=== PATIENT | male | born 1965 | race African-American/Black ===

== ENCOUNTER 2017-12-17 10:47 | Emergency (ER) | payer OTHER ==
[~2017-12-17] VITALS: Ht 170.2 cm; Wt 67.0 kg
[2017-12-17 11:43] LABS: HEMATOCRIT 43.6 % (38.0-50.0); HEMOGLOBIN 15.9 G/DL (12.5-16.6); MCH 32.2 PG (29.0-34.0); MCHC 36.5 G/DL (30.0-36.0); MCV 88.3 FL (86-99); PLATELET COUNT 304 K/uL (156-360); RBC DIS.WIDTH-SD 39.1 % (39-53); RED BLOOD COUNT 4.94 M/uL (4.00-5.50); WHITE BLOOD COUNT 8.4 K/uL (4.1-10.2)
[2017-12-17 11:53] LABS: ALBUMIN 4.3 g/dL (3.2-4.8); CHLORIDE 106 mEq/L (99-109); POTASSIUM 4.1 mEq/L (3.7-5.4); SODIUM 139 mEq/L (136-147)
[2017-12-17 11:55] LABS: GLUCOSE 99 mg/dL (70-99); TOTAL PROTEIN 7.8 g/dL (6.4-8.3)
[2017-12-17 11:57] LABS: TOTAL BILIRUBIN 0.7 mg/dL (0.0-1.0)
[2017-12-17 11:59] LABS: ALKALINE PHOSPHATASE 74 IU/L (3-129); CREATININE 1.1 mg/dL (0.6-1.3); GFR ESTIMATE (CALCULATED) > 59 mL/min/ (58.99-99999)
[2017-12-17 12:00] LABS: UREA NITROGEN (BUN) 14 mg/dL (9-23)
[2017-12-17 12:01] LABS: AST (GOT) 21 IU/L (2-34)
[2017-12-17 12:02] LABS: ALT (GPT) 13 IU/L (3-49)
[2017-12-17 12:46] LABS: APPEARANCE CLEAR ((CLEAR)); BILIRUBIN NEGATIVE; BLOOD NEGATIVE; COLOR AMBER ((YELLOW)); GLUCOSE (STRIP) NEGATIVE; KETONES 80; LEUKOCYTES NEGATIVE; NITRITE NEGATIVE; PROTEIN (STRIP) 30; SPECIFIC GRAVITY 1.032 (1.000-1.030)
[2017-12-17] MEDS ORDERED: ZOFRAN ODT8 MG PO (13:13)
[2017-12-17 13:38] VITALS: BP 121/84
== END 2017-12-17 13:50 | disposition home or self-care (01) ==
LOC: EME 10:47
PROVIDERS: Physician Assistant
DX: R11.2 Nausea with vomiting, unspecified (principal); K62.5 Hemorrhage of anus and rectum; Z98.890 Other specified postprocedural states; F17.200 Nicotine dependence, unspecified, uncomplicated
CPT/HCPCS: 80053; 81003; 85027; 99281; 99284